=== PATIENT | female | born 1990 | race Caucasian/White ===

== ENCOUNTER 2020-12-18 12:31 | Emergency (ER) | payer MEDICAID, OTHER ==
[~2020-12-18] VITALS: Ht 160 cm; Wt 68.2 kg
[2020-12-18] MEDS ORDERED: POVIDONE-IODINE 10% 15 ML SOLUTION UD TP ONE (13:45)
[2020-12-18] MEDS ORDERED: LIDOCAINE 1% 10 ML VIAL PERC ONE (13:45)
[2020-12-18] MEDS ORDERED: PERTUSS(ACELL),DIPH,TET VAC/PF 0.5 ML SYRINGE IM. ONE (14:15)
[2020-12-18 14:50] VITALS: BP 127/71
== END 2020-12-18 15:02 | disposition home or self-care (01) ==
LOC: EMS 12:34
DX: L03.313 Cellulitis of chest wall (principal); F17.210 Nicotine dependence, cigarettes, uncomplicated
CPT/HCPCS: 10060; 90471; 90715; 99283; J3490